=== PATIENT | female | born 1965 ===

== ENCOUNTER 2018-01-22 08:01 | Outpatient (CLI) | payer OTHER ==
[~2018-01-22] VITALS: Ht 167.6 cm; Wt 84.4 kg
== END 2018-01-22 08:15 | disposition home or self-care (01) ==
LOC: OFIC 805 08:01
DX: K14.6 Glossodynia (principal); M54.2 Cervicalgia; R13.19 Other dysphagia

== ENCOUNTER 2018-02-04 07:28 | Outpatient (CLI) | payer OTHER ==
[~2018-02-04] VITALS: Ht 152.4 cm; Wt 84.4 kg
== END 2018-02-04 07:50 | disposition home or self-care (01) ==
LOC: OFIC 805 07:28
DX: R13.19 Other dysphagia (principal); K21.9 Gastro-esophageal reflux disease without esophagitis